=== PATIENT | male | born 1950 | race Caucasian/White ===

== ENCOUNTER 2024-10-19 18:15 | Emergency (ER) | payer MEDICARE, SELFPAY ==
[2024-10-19 18:17] VITALS: BP 138/86
--- NOTE | 2024-10-19 19:47 | ED.GENMED ---
History of Present Illness
General
Chief Complaint: Musculo-Skeletal Complaint
Source: patient and spouse
Exam Limitations: none
Time Seen by Provider: 10/19/24 19:16
Nursing documentation reviewed up to this point in time: agreed with
History of Present Illness
History of Present Illness:
74-year-old female presenting to the emergency department today with concerns of a snapping sensation to the left calf prior to arrival while initially was able to ambulate but then had spasm to the muscle. EMS was called he was brought in by
ambulance. Denies additional injury. [place] somewhat lightheaded when the pain was severe. EKG was performed but normal prior to arrival.
Past History
Past History
ED Past Medical History: Cancer (Prostate CA), HTN and Hypercholesterolemia
ED Past Surgical History: Other (Bilateral hernia repair, Dental implants)
Social History
Tobacco: Former smoker
Alcohol: Daily (Wine 2 glasses)
Personal:
Living: with family
Review of Systems
Review of Systems
Allergies reviewed?: Yes
All Other Systems: ROS reviewed and negative except as documented in HPI and ROS
Phy Exam
Physical Exam
Physical Exam:
GENERAL: Alert , in no apparent distress
EYE: pupils equal and reactive
NECK: Supple, no significant adenopathy.
ENT: o/p clr, mmm.
CARDIAC: Regular rate and rhythm .
LUNGS: Clear breath sounds bilaterally, no acute respiratory distress, no wheezes/rales/rhonchi
ABDOMEN: Soft, without focal tenderness, no r/g, no cvat
NEUROLOGICAL: Alert and oriented, no focal neuro deficits
SKIN: Warm and dry, skin intact.
MUSCULOSKELETAL: Discomfort to the medial head of the gastrocnemius Achilles intact negative Nguyen squeeze test. No tenderness throughout the ankle foot. Normal distal pulses dorsalis pedis and posterior tibialis. Good range of motion at the
knee and ankle. No edema, well perfused.
PSYCH: Normal and appropriate interaction.
Course
Orders/Labs/Results
Orders:
Orders
10/19/24 18:19
Tib/Fib, Left 2 View [CR Leg Tibia/fibula Left 2 Vw] Stat
Comment:
Reason For Exam: pain
Vital Signs
Initial and Last Documented VS:
Initial Vital Signs
Temp Pulse Resp BP Pulse Ox
97.8 F 65 12 138/86 99
10/19/24 18:17 10/19/24 18:17 10/19/24 18:17 10/19/24 18:17 10/19/24 18:17
Last Documented Vital Signs
Temp Pulse Resp BP Pulse Ox
97.8 F 65 12 138/86 99
10/19/24 18:17 10/19/24 18:17 10/19/24 18:17 10/19/24 18:17 10/19/24 18:17
MDM/Problems Addressed
MDM/Problems Addressed:
74-year-old male presenting to the emergency department today after feeling a pop in his calf playing pickle ball prior to arrival. On arrival here vital signs are normal. Patient no distress tenderness to the medial head of the gastrocnemius.
Achilles intact no bony tenderness. Symptoms consistent with a gastroc tear. Patient initially given a boot for initial protection but advised for early ambulation and close outpatient follow-up. Return precautions given.
*Critical Care Note
Total Time (30-74mins, 75-104mins- exclusive of procedures): Not Applicable
ED Attending Note
-
Portions of this chart may have been created with voice recognition software.� Occasional wrong word or��sound alike� substitutions may have occurred due to the inherent limitations of voice recognition software.
Discharge Plan
Departure
Patient Disposition: Home (Routine Discharge)
Date of Disposition: 10/19/24
Time of Disposition: 19:50
Patient with high blood pressure during this ER visit?: No
Condition: Good
Covid-19: Not Applicable
Discharge Problem:
Gastrocnemius tear
Instructions: Lower Extremity Muscle Strain (DC)
Prescriptions:
New
cyclobenzaprine 10 mg tablet
10 mg PO BID PRN (Reason: muscle spasm) Qty: 7 0RF
No Action
cephalexin 500 MG capsule
500 mg PO BID Qty: 14 0RF
Referrals:
Anand Nolasco MD [Active] - Follow up in 5-7 days
Activity Restrictions/Additional Instructions:
You came to the emergency department today with concerns of discomfort to your calf. You likely have a calf muscle strain. Please rest ice compress and elevate over the next week or 2 , symptoms will hopefully be improving. Please follow closely
with orthopedics. Return for any worsening, new or concerning symptoms.
Interventions
Interventions:
*Risk Screen - Suicide Last Done: 10/19/24 18:17
*General Assessment Last Done: 10/19/24 19:36
*Neglect/Abuse Screening Last Done: 10/19/24 18:17
ED- Fall Risk Assessment Last Done: 10/19/24 19:36
*ED COVID-19 Vaccine History Last Done: 10/19/24 19:36
ED-Musculoskeletal Assessment Last Done: 10/19/24 19:36
Discharge Date and Time
Print Language: SPANISH
[2024-10-19 20:20] VITALS: BP 141/93
== END 2024-10-19 20:20 | disposition home or self-care (01) ==
LOC: EMR 18:15
PROVIDERS: EMERGENCY PHYSICIAN Emergency Medicine
DX: S86.812A Strain of other muscle(s) and tendon(s) at lower leg level, left leg, initial encounter (principal); X58.XXXA Exposure to other specified factors, initial encounter; I10 Essential (primary) hypertension; E78.00 Pure hypercholesterolemia, unspecified; Z87.891 Personal history of nicotine dependence; Z85.46 Personal history of malignant neoplasm of prostate
CPT/HCPCS: 99283; 73590

== ENCOUNTER → 2025-03-13 11:25 | Outpatient (REF) | payer MEDICARE, OTHER, SELFPAY | LOC: HWRAD 11:25 | PROVIDERS: REFERRING PHYSICIAN Radiology Radiation Oncology | DX: R79.89 Other specified abnormal findings of blood chemistry (principal) | CPT/HCPCS: 76700 ==

== ENCOUNTER 2025-03-26 20:45 | Emergency (ER) | payer MEDICARE, OTHER, SELFPAY ==
[2025-03-26 20:48] VITALS: BP 127/95; BMI 27.5
[2025-03-26 20:52] VITALS: BP 127/95
[2025-03-26 21:01] VITALS: BP 119/77
[2025-03-26 21:04] LABS: Hematocrit 32.3 % (39.0-52.0); Hemoglobin 11.2 g/dL (13.0-18.0); Mean Corp Hgb Conc. 34.7 g/dL (33.0-37.0); Mean Corpuscular Volume 88.7 fL (80.0-94.0); Nucleated Red Blood Cells % 0 % (-); Platelet Count 389 10^3/uL (130-400); Red Cell Dist. Width 13.4 % (11.5-14.5)
[2025-03-26 21:23] LABS: ALT (SGPT) 39 U/L (0-50); AST (SGOT) 40 U/L (17-59); Albumin 3.6 g/dl (3.5-5.0); Alkaline Phosphatase 490 U/L (38-126); Blood Urea Nitrogen 27 mg/dl (9-20); Calcium 9.0 mg/dl (8.4-10.2); Carbon Dioxide 21 mmol/L (22-30); Chloride 108 mmol/L (98-107); Estimated Creatinine Clearance 64 ml/min; Glucose 128 mg/dl (70-99); Potassium 4.3 mmol/L (3.5-5.1); Sodium 137 mmol/L (135-145); Total Protein 6.7 g/dl (6.3-8.2); eGFR > 60.00
--- NOTE | 2025-03-26 21:53 | ED.GENMED ---
History of Present Illness
General
Chief Complaint: Fainting/Passed Out
Source: patient and spouse
Exam Limitations: none
Time Seen by Provider: 03/26/25 20:57
Nursing documentation reviewed up to this point in time: agreed with
History of Present Illness
History of Present Illness:
74-year-old male with a past medical history of hypertension, hyperlipidemia, prostate cancer status post radiation presents to the ER for evaluation after syncopal event. Patient and note that he has been dealing with issues with severe
fatigue over the past 4 weeks and has been seeing his primary doctor to work this up. Workup thus far has yielded elevated alk phos on outpatient labs of unclear clinical significance, marginal anemia and positive Lyme's test for which patient is
currently taking doxycycline. 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 He sat down at the dinner table
and started to feel lightheaded, stood up to walk to the couch and when he arrived at the couch he apparently passed out onto the couch. He says he cannot recall passing out. EMS was called to bring him to the hospital for assessment. Patient
denies any preceding chest pain, palpitations, shortness of breath and has not had any of the symptoms since. Denies headache, abdominal pain, flank pain. He says that he feels normal aside from fatigue here in the ER. He says he did have 1
episode of syncope in the past when he injured his calf and passed out due to pain.
Past History
Past History
ED Past Medical History: Cancer (Prostate CA), HTN and Hypercholesterolemia
ED Past Surgical History: Other (Bilateral hernia repair, Dental implants)
Social History
Tobacco: Former smoker
Alcohol: Daily (Wine 2 glasses)
Personal:
Living: with family
Review of Systems
Review of Systems
All Other Systems: ROS reviewed and negative except as documented in HPI and ROS
Constitutional: Denies fever or chills
Respiratory: Denies cough or trouble breathing
Cardiac: Reports syncope; Denies chest pain, diaphoresis or palpitations
ABD/GI: Denies abdominal pain, nausea or vomiting
: Denies flank pain
Musculoskeletal: Denies neck pain or back pain
Neurological: Denies headache, weakness or numbness
Phy Exam
Physical Exam
Physical Exam:
General: Awake, alert, oriented x3; no acute distress
Head: Normocephalic, atraumatic
Eyes: Conjunctiva normal, pupils equal round reactive to light bilaterally
Throat: Airway intact, handling secretions
Neck: Trachea midline, supple without meningismus
Lungs: Clear to auscultation bilaterally, no wheezing, rales, rhonchi
Heart: Regular rate and rhythm, no murmurs, gallops, or rubs
Abd: Soft, non distended, nontender, no palpable masses
Neuro: Cranial nerves grossly intact, speech fluid, no gross motor or sensory deficit
Extremities: Atraumatic, no edema in extremities, equal pulses in all extremities
Scores
Heart Failure Risk
Heart Failure Risk Score: Not Applicable
Heart Score for Chest Pain Patients
STEMI patient?: Not applicable
Withdrawal Assessment of Alcohol
Withdrawal Assessment Completed?: Not applicable
Course
Orders/Labs/Results
Orders:
Orders
03/26/25 20:56
EKG [Electrocardiogram (*1)] Urgent
Reason for Study: Tachycardia
EKG- Treatment ONCE
03/26/25 20:57
Complete Blood Count/With Diff Urgent
Comprehensive Metabolic Panel Urgent
03/26/25 21:00
Troponin I Urgent
Abnormal Lab Results
03/26/25
20:57
RBC 3.64 L 10^6/uL
(4.70-6.10)
Hgb 11.2 L g/dL
(13.0-18.0)
Hct 32.3 L %
(39.0-52.0)
Abs Immat Gran (auto) 0.1 H 10^3/uL
(0-0.05)
Absolute Monos (auto) 0.7 H 10^3/uL
(0.1-0.6)
Immature Gran % 1.1 H %
(0-0.5)
Chloride 108 H mmol/L
(98-107)
Carbon Dioxide 21 L mmol/L
(22-30)
BUN 27 H mg/dl
(9-20)
Glucose 128 H mg/dl
(70-99)
Alkaline Phosphatase 490 H U/L
(38-126)
03/26/25 20:57
03/26/25 20:57
Vital Signs
Initial and Last Documented VS:
Initial Vital Signs
Temp Pulse Resp BP Pulse Ox
36.8 C 77 16 127/95 100
03/26/25 20:48 03/26/25 20:48 03/26/25 20:48 03/26/25 20:48 03/26/25 20:48
Last Documented Vital Signs
Temp Pulse Resp BP Pulse Ox
36.8 C 73 15 132/84 100
03/26/25 20:48 03/26/25 22:00 03/26/25 22:00 03/26/25 22:00 03/26/25 22:01
MDM/Problems Addressed
Differential Diagnosis Includes:
Vasovagal episode, orthostatic syncope, dysautonomia, dysrhythmia, valvular disease, dehydration, electrolyte derangement, anemia
MDM/Problems Addressed:
74-year-old male presents after syncopal event today. He has been dealing with recent heavy fatigue x 4 weeks and is currently being treated for Lyme's disease. Asymptomatic here in the ER. Vital signs are normal. Physical exam as above. His
labs were sent off including CBC which showed marginal anemia which is known to patient as of recent workup. CMP shows mildly elevated BUN. Alk phos elevated but improved�patient says previously was over 900. His EKG here shows sinus rhythm with
no ectopy, normal QTc, no delta wave, no Brugada. Unclear etiology to syncope today�not clearly orthostatic in fact his symptoms started while he was sitting at the dinner table. He does mention that he was doing some stretching prior to the
episode and was bending over to touch his toes repeatedly a few minutes prior to sitting down which likely contributed. Could be some mild dehydration with elevated BUN. He did not have any preceding palpitations or chest pain to suggest that this
is valvular disease or dysrhythmia and no concerning findings on EKG. I had a long discussion with the patient, offered admission for observation on telemetry versus discharge with close PCP follow-up and cardiology referral. He prefers discharge.
Shared decision making we will discharge with outpatient follow-up plan. Spoke about return precautions and all questions answered.
*Pulse Oximetry
SaO2: 100
Oxygen Mode of Delivery: Room air
Patient hypoxic: no (100%)
*EKG
Interpreted by ED Provider?: Yes
Heart Rate: 69
Rate: normal
Rhythm: sinus
[place]: normal axis
Interval: normal interval
QRS Pattern: normal QRS
Ischemia: no ischemia
*Critical Care Note
Total Time (30-74mins, 75-104mins- exclusive of procedures): Not Applicable
Data Reviewed
Source: patient and spouse
Patient Management
Escalation/DeEscalation of care consider admission/obs:
Offered admission�shared decision making discharged with close follow-up
ED Attending Note
-
Portions of this chart may have been created with voice recognition software.� Occasional wrong word or��sound alike� substitutions may have occurred due to the inherent limitations of voice recognition software.
Discharge Plan
Departure
Patient Disposition: Home (Routine Discharge)
Date of Disposition: 03/26/25
Time of Disposition: 22:40
Patient with high blood pressure during this ER visit?: No
Discharge Problem:
Syncope
Instructions: Syncope (Fainting) (DC), Chest Pain CBC Follow Up
Prescriptions:
No Action
cephalexin 500 MG capsule
500 mg PO BID Qty: 14 0RF
cyclobenzaprine 10 mg tablet
10 mg PO BID PRN (Reason: muscle spasm) Qty: 7 0RF
Referrals:
Quinn Pretty MD [Active, Cardiology] - Call in 1-3 days for appt
Cuate Lainez Jr., MD [Family Provider, Family Practice]
Activity Restrictions/Additional Instructions:
Thank you for visiting the Emergency Department at [facility].
1. Please schedule a follow up appointment as directed. Call first thing tomorrow morning to make an appointment.
2. If indicated, please take your medications as instructed and indicated on discharge paperwork.
3. If any of your symptoms do not improve, or persist, or become more severe within 6-12 hours, please return to the emergency department for further care.
4. Please return to the emergency department if you develop a headache, neck pain/stiffness, fever greater than 100.4F, chest pain, shortness of breath, persistent nausea, vomiting, slurred speech, difficulty walking, numbness/tingling, weakness,
signs of infection or any other symptoms that are worrisome to you.
Please call [phone] if you have any questions.
Interventions
Interventions:
*Risk Screen - Suicide Last Done: 03/26/25 20:48
*General Assessment Last Done: 03/26/25 20:48
*Neglect/Abuse Screening Last Done: 03/26/25 20:48
*ED- Fall Risk Assessment Last Done: 03/26/25 20:48
*ED COVID-19 Vaccine History Last Done: 03/26/25 20:48
ED- Cardiac Assessment Last Done: 03/26/25 21:01
ED- Neurological Assessment Last Done: 03/26/25 21:01
Discharge Date and Time
Print Language: GREENLANDIC
[2025-03-26 22:00] VITALS: BP 132/84
[2025-03-26 22:14] LABS: Troponin I < 0.012 ng/ml
== END 2025-03-26 22:53 | disposition home or self-care (01) ==
LOC: EMR 20:45
PROVIDERS: EMERGENCY PHYSICIAN Emergency Medicine
DX: R55 Syncope and collapse (principal); D64.9 Anemia, unspecified; E78.00 Pure hypercholesterolemia, unspecified; I10 Essential (primary) hypertension; Z85.46 Personal history of malignant neoplasm of prostate; Z87.891 Personal history of nicotine dependence; Z92.3 Personal history of irradiation
CPT/HCPCS: 99284; 80053; 84484; 85025; 93005

== ENCOUNTER → 2025-05-13 15:05 | Outpatient (REF) | payer MEDICARE, OTHER, SELFPAY | LOC: HWRCS 15:05 | PROVIDERS: ATTENDING PHYSICIAN Internal Medicine | DX: R55 Syncope and collapse (principal); I10 Essential (primary) hypertension | CPT/HCPCS: 93306 ==

== ENCOUNTER → 2025-05-21 10:35 | Outpatient (REF) | payer MEDICARE, OTHER, SELFPAY | LOC: RCS 10:35 | PROVIDERS: ATTENDING PHYSICIAN Internal Medicine | DX: R55 Syncope and collapse (principal); I10 Essential (primary) hypertension | CPT/HCPCS: 93017 ==